=== PATIENT | male | born 1970 | race Caucasian/White ===

== ENCOUNTER 2017-07-23 19:59 | Emergency (ER) | payer MEDICAID ==
[~2017-07-23] VITALS: Ht 172.7 cm; Wt 81.0 kg
[2017-07-23 20:11] VITALS: BP 125/65
[2017-07-23] MEDS ORDERED: ACETAMINOPHEN 325MG TABLET PO ONE (21:30)
== END 2017-07-23 21:37 | disposition home or self-care (01) ==
LOC: ER 19:59
DX: K02.9 Dental caries, unspecified (principal); K08.89 Other specified disorders of teeth and supporting structures; Z90.49 Acquired absence of other specified parts of digestive tract
CPT/HCPCS: 99283

== ENCOUNTER 2017-11-01 00:57 | Emergency (ER) | payer BC, MEDICAID ==
[~2017-11-01] VITALS: Ht 172.7 cm; Wt 83.0 kg
[2017-11-01 01:25] VITALS: BP 128/78
== END 2017-11-01 07:52 | disposition left against medical advice (07) ==
LOC: ER 00:57
DX: R00.2 Palpitations (principal); R06.00 Dyspnea, unspecified; R51 Headache; R53.1 Weakness; Z53.21 Procedure and treatment not carried out due to patient leaving prior to being seen by health care provider